=== PATIENT | male | born 1965 | race Caucasian/White ===

== ENCOUNTER → 2017-07-18 | Day surgery (SDC) | payer OTHER ==
[2017-07-15 14:58] VITALS: BP 126/70
[2017-07-15 15:19] LABS: BASOPHIL % 0.3 % (0.0-0.2); EOSINOPHIL # 0.1 10^3/uL (0.0-0.2); EOSINOPHIL % 1.2 % (0.0-5.0); HEMOGLOBIN 15.3 g/dL (13.9-16.3); LYMPHOCYTES # 2.5 10^3/uL (1.0-4.8); LYMPHOCYTES % 32.7 % (24.0-44.0); MEAN CELL HGB 33.3 pg (26-34); MEAN CELL HGB CONCENTRATION 33.7 g/dL (33-37); MEAN CORP VOLUME 98.7 fL (78-100); MEAN PLATELET VOLUME 8.4 fL (7.8-11.0); MONOCYTES # 0.7 10^3/uL (0.3-0.8); MONOCYTES % 9.1 % (5.0-12.0); NEUTROPHIL # 4.3 10^3/uL (1.8-7.7); NEUTROPHILS % 56.6 % (41.0-85.0); RED CELL DISTRIBUTION WIDTH 13.6 % (11.5-14.5); WHITE BLOOD CELL 7.7 10^3/uL (4.5-11.0)
[2017-07-15 15:33] LABS: CALCIUM 8.5 mg/dL (8.4-10.5); CARBON DIOXIDE 24.5 mmol/L (20.0-32)
--- NOTE | 2017-07-16 15:09 | PCM.EKG ---
[facility] Test Date: 2017-07-16 Test Time: 09:07:07 Pat Name: JYOTHI CARROLL Department: Room: Gender: M School Occupational Therapist: JULISSA : 1965 Requested By: DAWNA HENNESSY Order Number: [id number] Reading MD: Measurements Intervals [place] Rate: 55 P: 50 KS: 142 QRS: 46 QRSD: 94 T: 163 QT: 432 QTc: 413 Interpretive Statements Sinus bradycardia T wave abnormality, consider inferior ischemia T wave abnormality, consider anterolateral ischemia Abnormal ECG No previous ECG available for comparison Please click the below link to view image of tracing.
[2017-07-18] VITALS (12 sets, daily range): BP systolic 126–154; BP diastolic 80–94
[~2017-07-18] VITALS: Ht 185.4 cm; Wt 144.7 kg
[~2017-07-18] MED LIST: ALLO100T PO; ALLO300T PO; CLOP75TA52 PO; DECADRON ONE; DILAUDID IV PRN; DIPRIVAN IV ONE; EPHEDRINE SULFATE ONE; MAGN400T7 PO; METO50TA4 PO; MULT-381 PO; NORCO 5MG PO PRN; NS 3000ML IRR IR ONE; OLME40TA12 PO; OMEG1CAP22 PO; PANT40TA3 PO; SODIUM CHLORIDE IR ONE; SUBLIMAZE IV PRN; TORADOL ONE; TRAM-47 PO; TYLENOL PO ONE; VERSED ONE; XYLOCAINE 2%-EPI 1:100,000 ONE; XYLOCAINE ONE; ZOFRAN ONE
[2017-07-18] MEDS: LACTATED RINGERS 1,000 ML IV SCH ×2 (06:13→09:25)
--- NOTE | 2017-07-18 10:46 | OPH ---
DATE OF SURGERY: 07/18/2017 PREOPERATIVE DIAGNOSES: 1. Left knee medial meniscal tear. 2. Osteoarthritis, left knee. POSTOPERATIVE DIAGNOSES: 1. Left knee medial meniscal tear. 2. Osteoarthritis, left knee. OPERATIVE PROCEDURE: Arthroscopy of the left knee with: 1. Partial medial meniscectomy. 2. Chondroplasty of the patellofemoral joint. SURGEON: Jose Alcaraz MD ANESTHESIA: LMA. TOURNIQUET TIME: 21 minutes at 300 mmHg. DRAINS: None. BLOOD LOSS: 10 mL. DESCRIPTION OF INDICATIONS: The patient is a 51-year-old male. He has had pain about the left knee for the last 6 months. He complains of medial-sided knee pain as well as painful catching and popping about the knee. He takes Plavix and has GERD, so he cannot take any anti-inflammatories. He has tried some home exercises as well as cortisone injection without significant relief. His knee shows 2+ effusion, full range of motion, mild crepitation. He has tenderness about the medial joint line with a positive Lizeth test, but a negative Abhi test. His x-rays show minor narrowing medially. The MRI scan shows a tear of the posterior horn of his medial meniscus with some narrowing about the medial joint line. Because of the painful mechanical symptoms, the patient was taken to the operating room for arthroscopy. DESCRIPTION OF PROCEDURE: The patient was placed in the operating table in the supine position. A LMA anesthetic was induced without difficulty. Left thigh was padded and a tourniquet was applied around the left lower extremity. The left lower extremity was then sterilely prepped and draped. The patient had arthroscopy portals made superolateral, anterolateral and anteromedial. The tourniquet was elevated after the leg had been elevated for 60 seconds. The suprapatellar pouch was viewed. He had some [id number] hypertrophic synovium about the patellofemoral joint. No loose bodies. 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 Later in the case, a shaver was introduced and any loose articular cartilage about the patella as well as the femoral sulcus was then debrided back to healthy articular edges. Synovectomy was performed of the anterior medial compartments. The patient's medial compartment was entered. He had a tear of the posterior horn of the medial meniscus that was resected using upbiters as well as a shaver. There was grade 4 chondromalacia about the distal aspect of his medial femoral condyle diffusely. It was not amenable to microfracture. Again, any loose articular edges were debrided back to healthy articular edges. The patient then had the intercondylar notch viewed. The anterior and posterior cruciate ligaments were normal. The patient then had the lateral compartment viewed. The lateral meniscus was totally within normal limits as was the lateral femoral condyle and the lateral tibial plateau. The patient had the arthroscopic equipment removed from the knee. The portal tracts were closed with 3-0 Ethilon. A compressive dressing was applied and the tourniquet was released. He was extubated in the operating room, sent to recovery in stable condition. Jose Alcaraz MD DR: LENNY/sonido JOB# [id number]
== END | disposition home or self-care (01) ==
LOC: SDC 04:21
PROVIDERS: ATTEND Orthopaedic Surgery
DX: M23.222 Derangement of posterior horn of medial meniscus due to old tear or injury, left knee (principal); M17.12 Unilateral primary osteoarthritis, left knee; M67.262 Synovial hypertrophy, not elsewhere classified, left lower leg; M94.262 Chondromalacia, left knee
CPT/HCPCS: 29881; 36415; 80048; 85025; 93005; A4649 ×5; J1100; J1885; J2250; J2405; J3490 ×2; J7030 ×2

== ENCOUNTER 2020-03-24 07:53 | Day surgery (SDC) | payer OTHER ==
[2020-03-23 15:03] VITALS: BP 126/76
--- NOTE | 2020-03-23 15:28 | PCM.EKG ---
[facility] Test Date: 2020-03-23 Test Time: 15:09:39 Pat Name: JYOTHI CARROLL Department: Room: Gender: M Production Editor: JULISSA : 1965 Requested By: GABRIEL POWELL Order Number: [id number] Reading MD: Measurements Intervals [place] Rate: 59 P: 55 CA: 140 QRS: 56 QRSD: 96 T: 168 QT: 452 QTc: 447 Interpretive Statements Sinus bradycardia Marked T wave abnormality, consider anterolateral ischemia Compared to ECG 07/16/2017 09:07:07 No significant changes Please click the below link to view image of tracing.
[2020-03-23 15:39] LABS: BASOPHIL % 0.1 % (0.0-0.2); EOSINOPHIL # 0.1 10^3/uL (0.0-0.2); EOSINOPHIL % 1.6 % (0.0-5.0); LYMPHOCYTES # 2.43 10^3/uL1 (1.0-4.8); LYMPHOCYTES % 34.9 % (24.0-44.0); MEAN CORP HGB 33.9 pg (26-34); MONOCYTES # 0.7 10^3/uL (0.3-0.8); MONOCYTES % 10.6 % (5.0-12.0); NEUTROPHIL # 3.7 10^3/uL (1.8-7.7); NEUTROPHILS % 52.7 % (41.0-85.0); PLATELET COUNT 199 10^3/uL (150-400); RED CELL DISTRIBUTION WIDTH 12.9 % (11.5-14.5)
[2020-03-23 15:56] LABS: CALCIUM 9.3 mg/dL (8.4-10.5); CARBON DIOXIDE 25.8 mmol/L (20.0-32)
[~2020-03-24] VITALS: Ht 185.4 cm; Wt 145.6 kg
[2020-03-24] VITALS (12 sets, daily range): BP systolic 126–173; BP diastolic 58–94
[~2020-03-24 07:53] MED LIST changes: +ANCEF ONE; -DECADRON ONE; -DILAUDID IV PRN; -DIPRIVAN IV ONE; -EPHEDRINE SULFATE ONE; +LACTATED RINGERS 1,000 ML IV SCH; +LACTATED RINGERS 1,000 ML ONE; -MAGN400T7 PO; +MAGN400T9 PO; -NORCO 5MG PO PRN; +NS 250ML 250 ML IV ONE; +OLME5TAB4 PO; +ROSU10TA2 PO; -SODIUM CHLORIDE IR ONE; +SODIUM CHLORIDE IRR BOTTLE IR ONE; -SUBLIMAZE IV PRN; -TORADOL ONE; -TYLENOL PO ONE; -VERSED ONE; +VITA100020 PO; +VITA400C37 PO; -XYLOCAINE 2%-EPI 1:100,000 ONE; -XYLOCAINE ONE; -ZOFRAN ONE
[2020-03-24] MEDS ORDERED: ZOFRAN ONE (12:01)
[2020-03-24] MEDS ORDERED: LIDOCAINE 2% VIAL ONE (12:01)
[2020-03-24] MEDS ORDERED: TORADOL ONE (12:01)
[2020-03-24] MEDS ORDERED: SUBLIMAZE ONE (12:02)
[2020-03-24] MEDS ORDERED: DECADRON ONE (12:02)
[2020-03-24] MEDS ORDERED: VERSED ONE (12:02)
[2020-03-24] MEDS ORDERED: DIPRIVAN IV ONE (12:02)
[2020-03-24] MEDS ORDERED: NS 3000ML IRR IR ONE (12:53)
--- NOTE | 2020-03-24 13:21 | OPH ---
DATE OF SURGERY: 03/24/2020 PREOPERATIVE DIAGNOSIS: Medial meniscal tear of the right knee. OTHER DIAGNOSES: Include patellofemoral osteoarthritis. POSTOPERATIVE DIAGNOSIS: Medial meniscal tear of the right knee plus lateral meniscal tear, right knee. OPERATIVE PROCEDURES: 1. Right knee arthroscopy with partial medial and lateral meniscectomies. 2. Chondroplasty of the patellofemoral joint. ANESTHESIA: LMA. TOURNIQUET TIME: 23 minutes at 300 mmHg. DRAINS: None. BLOOD LOSS: 10 mL. DESCRIPTION OF INDICATIONS: The patient is a 54-year-old male who has had pain about the medial aspect of his right knee for the last 6 months. The patient takes Plavix and cannot take any anti-inflammatories. He takes Tylenol for the pain. He has tried home exercises as well as bracing and a cortisone injection. The patient complains of painful popping about the knee about the medial aspect. PHYSICAL EXAMINATION: The patient's exam shows that he has 1+ effusion. There is full range of motion about the knee. He has tenderness and a positive Lizeth test about the medial joint line. His ligaments are all intact. IMAGING DATA: Plain x-rays are negative. The MRI scan shows that he has some patellofemoral arthritic changes and a tear of the posterior horn of his medial meniscus. Because of continued mechanical symptoms, the patient was taken to the operating room for arthroscopy with partial medial meniscectomy. DESCRIPTION OF PROCEDURE: The patient was placed on the operating table in the supine position. LMA anesthetic was induced without difficulty. The patient had the right thigh padded and a tourniquet was applied. Right lower extremity was then sterilely prepped and draped. The patient had the leg elevated for 60 seconds and the tourniquet was inflated to 300 mmHg. Arthroscopy portals were made superolateral, anterolateral and anteromedial. The suprapatellar pouch was viewed. He had mild hypertrophic synovium about the suprapatellar pouch. He had grade 4 chondromalacia about the articular surface of his patella; however, the femoral sulcus was well maintained. Later in the case, any loose pieces of articular cartilage about the patella were then debrided with a shaver back to stable articular cartilage. The medial and lateral gutters were viewed. There were no loose bodies, mild hypertrophic synovium. His medial compartment was entered. He had some grade 3 chondromalacia about the medial femoral condyle, but no exposed subchondral bone. Any loose articular cartilage about the medial femoral condyle was smoothed with a shaver. The medial meniscus had a tear of the posterior horn of the medial meniscus. It was resected in a U-shape manner back to the capsule. The patient's intercondylar notch was viewed. His anterior and posterior cruciate ligaments were normal. The lateral compartment was viewed. He had some tearing of the central portion of the lateral meniscus that was resected with the upbiter. The articular cartilage about the lateral compartment was normal. The patient then had the arthroscopic equipment removed from the knee. The portal tracts were closed with 3-0 Ethilon in an interrupted manner. Compressive dressing was applied and he was extubated in the operating room, sent to recovery in stable condition. Jose Alcaraz MD DR: LENNY/sonido JOB# [id number]
[2020-03-24] MEDS ORDERED: TRAM50TA PO (13:33)
[2020-03-24] MEDS ORDERED: ULTRAM PO ONE (13:50)
[2020-03-24] MEDS ORDERED: ULTRAM ONE (14:01)
[2020-03-24] MEDS ORDERED: ANCEF 3 GM in NS 100ML 100 ML IV ONE (14:30)
== END 2020-03-24 15:55 | disposition home or self-care (01) | DRG 563 ==
LOC: SDC 07:53
PROVIDERS: ATTEND Orthopaedic Surgery
DX: M23.221 Derangement of posterior horn of medial meniscus due to old tear or injury, right knee (principal); M23.261 Derangement of other lateral meniscus due to old tear or injury, right knee; M67.261 Synovial hypertrophy, not elsewhere classified, right lower leg; M22.41 Chondromalacia patellae, right knee; M17.11 Unilateral primary osteoarthritis, right knee; I25.10 Atherosclerotic heart disease of native coronary artery without angina pectoris; I10 Essential (primary) hypertension; I73.9 Peripheral vascular disease, unspecified; G47.33 Obstructive sleep apnea (adult) (pediatric); E66.09 Other obesity due to excess calories; Z68.41 Body mass index [BMI] 40.0-44.9, adult; Z88.8 Allergy status to other drugs, medicaments and biological substances; Z79.899 Other long term (current) drug therapy; Z86.73 Personal history of transient ischemic attack (TIA), and cerebral infarction without residual deficits; Z98.52 Vasectomy status; Z90.49 Acquired absence of other specified parts of digestive tract; Z98.890 Other specified postprocedural states; Z82.49 Family history of ischemic heart disease and other diseases of the circulatory system; Z83.3 Family history of diabetes mellitus
CPT/HCPCS: 29880; 36415; 80053; 85025; 93005; A4217 ×3; A4649 ×2; J0690 ×2; J1100; J1885; J2001; J2250; J2405; J3010; J3490; J7050 ×2; J7120

== ENCOUNTER 2022-01-17 07:37 | Emergency (ER) | payer OTHER ==
[~2022-01-17] VITALS: Ht 185.4 cm; Wt 140.6 kg
[2022-01-17 07:37] VITALS: BP 151/94
[~2022-01-17 07:37] MED LIST changes: -ANCEF ONE; -LACTATED RINGERS 1,000 ML IV SCH; -LACTATED RINGERS 1,000 ML ONE; +MAGN400T51 PO; -MAGN400T9 PO; -NS 250ML 250 ML IV ONE; -NS 3000ML IRR IR ONE; -SODIUM CHLORIDE IRR BOTTLE IR ONE; +TRAM50TA PO
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
[2022-01-17 08:13] VITALS: BP 114/48
== END 2022-01-17 08:13 | disposition home or self-care (01) ==
LOC: ER 07:37
DX: S46.311A Strain of muscle, fascia and tendon of triceps, right arm, initial encounter (principal); E78.00 Pure hypercholesterolemia, unspecified; I10 Essential (primary) hypertension; X58.XXXA Exposure to other specified factors, initial encounter; Y93.55 Activity, bike riding; Y92.410 Unspecified street and highway as the place of occurrence of the external cause; Y99.8 Other external cause status; Z90.49 Acquired absence of other specified parts of digestive tract; Z95.5 Presence of coronary angioplasty implant and graft
CPT/HCPCS: 99282